=== PATIENT | male | born 1990 | race Caucasian/White ===

== ENCOUNTER 2016-12-05 10:09 | Emergency (ER) | payer OTHER ==
[~2016-12-05] VITALS: Ht 180.3 cm; Wt 71.4 kg
[~2016-12-05 10:09] MED LIST: ALBUAER19 INH; MOXI400T2 PO; MULT-506 PO; ONDA4TAB46 SL; OXYC1TAB3 PO
[2016-12-05 10:32] VITALS: TEMP 36.8; Ht 180.3 cm; Wt 71.4 kg
[2016-12-05] MEDS ORDERED: FEXO1TAB49 PO (10:52)
[2016-12-05] MEDS ORDERED: ONDANSETRON INJ 2 MG/ML 2 ML VIAL IV STA (11:52)
[2016-12-05] MEDS ORDERED: MoRPHine SULFATE 4 MG/ML 1 ML CARP\\VIAL IV STA (11:52)
[2016-12-05] MEDS ORDERED: OPTIRAY 320 IV PRN (12:00)
[2016-12-05 12:07] VITALS: BP 134/81; PULSE 73; O2SAT 94
[2016-12-05 12:24] LABS: ISTAT CREATININE 0.8 mg/dl (0.6-1.3); ISTAT HEMOGLOBIN 17.3 g/dl (14.0-18.0); ISTAT IONIZED CALCIUM 1.17 mmol/l (1.12-1.32)
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
== END 2016-12-05 13:32 | disposition home or self-care (01) ==
LOC: C.EDB 10:11 → C.EDD 13:32
DX: R51 Headache (principal); M54.2 Cervicalgia; V22.0XXA Motorcycle driver injured in collision with two- or three-wheeled motor vehicle in nontraffic accident, initial encounter; Y92.39 Other specified sports and athletic area as the place of occurrence of the external cause; J45.909 Unspecified asthma, uncomplicated; Z87.01 Personal history of pneumonia (recurrent); Z72.0 Tobacco use; Z79.899 Other long term (current) drug therapy